=== PATIENT | male | born 1970 | race African-American/Black ===

== ENCOUNTER 2018-08-04 18:10 | Emergency (ER) | payer BC ==
[~2018-08-04] VITALS: Ht 175.3 cm; Wt 81.7 kg
[~2018-08-04 18:10] MED LIST: VICODIN 5-5001 EACH PO
[2018-08-04] MEDS ORDERED: IBUPROFEN 600600 M1 PO (19:22)
[2018-08-04] MEDS ORDERED: HYDROCODONE-AP1 EAC6 PO (19:22)
[2018-08-04] MEDS ORDERED: PENICILLIN VK500 M1 PO (19:22)
[2018-08-04 19:42] VITALS: BP 140/93
== END 2018-08-04 19:25 | disposition home or self-care (01) ==
LOC: ER 18:10
DX: K04.7 Periapical abscess without sinus (principal); F17.210 Nicotine dependence, cigarettes, uncomplicated